=== PATIENT | female | born 1930 | race Caucasian/White ===

== ENCOUNTER 2017-07-21 11:15 | Observation (INO) ==
[2017-07-21] MEDS ORDERED: Isovue-370 500 ML INFUS..BTL IV ONE (11:32)
--- NOTE | 2017-07-21 11:36 | Emergency Department Note ---
Disposition Clinical Impression: Congestive heart failure Qualifiers: Heart failure type: unspecified Heart failure chronicity: acute Qualified Code( s): I50.9 - Heart failure, unspecified Disposition: Admitted As Inpatient Condition: Fair Referrals: Jose Roberto Jimenez DO [Primary Care Provider] - Time of Disposition: 13:40 SOB HPI - General Chief Complaint: ED Shortness of Breath/Dyspnea Stated Complaint: "possible clot in lung" Time Seen by Provider: 07/21/17 11:23 Source: patient, family Mode of arrival: ambulatory Limitations: no limitations Nursing Notes Reviewed: Yes Vital Signs Reviewed: Yes - History of Present Illness 86-year-old whose had exertional dyspnea for the last several weeks. Saw her family doctor who did some blood work yesterday and was told that she may have a blood clot in her lung. He was also in the process of arranging to have a stress test done. She comes in for evaluation for possible PE. She has never had a blood clot in the past. No recent surgery. She does not have cancer that she knows of. Pt Subjective Complaint: shortness of breath Onset (ago): week(s) Context: occurred during exertion Severity: moderate Consistency/Duration: intermittent Improves with: nothing Worsens with: exertion Associated symptoms: Denies: fever Treatment prior to arrival: none Cough present: Yes Cough Description: Involuntary Cough Frequency: Intermittent - Related Data Home Medications Medication Instructions Recorded Confirmed Aspirin [Lo-Dose Aspirin EC] 81 mg PO DAILY 07/21/17 07/21/17 Carvedilol 12.5 mg PO BID 07/21/17 07/21/17 Furosemide [Lasix] 20 mg PO DAILY 07/21/17 07/21/17 Simvastatin [Zocor] 20 mg PO HS 07/21/17 07/21/17 Allergies Allergy/AdvReac Type Severity Reaction Status Date / Time No Known Allergies Allergy Verified 08/20/15 10:27 All systems ED: reviewed and negative except as stated. Constitutional: Denies: fever, chills, weakness, weight change Eyes: Denies: eye pain, eye discharge, vision change ENT ED: Denies: ear pain, throat pain, dental pain, hearing loss, epistaxis, congestion, dysphagia Cardiovascular: Denies: chest pain, palpitations, dyspnea on exertion, edema, syncope Respiratory: Reports: dyspnea. Denies: cough, wheezes, hemoptysis, stridor Gastrointestinal: Denies: abdominal pain, nausea, vomiting, diarrhea, constipation, hematemesis, melena, hematochezia Genitourinary: Denies: dysuria, frequency, hematuria, discharge Musculoskeletal: Denies: back pain, neck pain, arthralgia, myalgia Integumentary: Denies: rash, abrasion, lesions Neurological: Denies: headache, weakness, numbness, paresthesias, confusion, abnormal gait, vertigo Psychiatric: Denies: anxiety, depression, suicidal thoughts, homicidal thoughts , auditory hallucinations, visual hallucinations Endocrine: Denies: fatigue Hematological/Lymphatic: Denies: easy bleeding, easy bruising Allergic/Immunologic: Denies: facial swelling, urticaria Past Medical History - Past Medical History Medical history: Reports: hyperlipidemia, hypertension Psychiatric history: Reports: no psych history - Social History Smoking Status: Never smoker Smokeless Tobacco Status: No Alcohol use: Reports: none Drug use: Reports: none Physical Exam - General Limitations: no limitations General appearance: alert, in no apparent distress - Head Head exam: atraumatic, normocephalic, normal inspection - Eye Eye exam: Present: normal appearance, PERRL, EOMI - ENT ENT exam: normal exam, normal oropharynx, mucous membranes moist - Neck Neck exam: Present: normal inspection, full ROM, trachea midline - Chest Chest inspection: Present: normal inspection, symmetric chest wall rise - Respiratory Respiratory exam: Present: normal lung sounds bilaterally - Cardiovascular Cardiovascular exam: Present: regular rate, normal rhythm, normal heart sounds - Abdominal Exam Abdominal exam: Present: soft, Non-Tender. Absent: tenderness, distention, guarding, rebound, rigidity - Extremities Exam Extremities exam: Present: normal inspection, full ROM. Absent: tenderness, pedal edema - Expanded Lower Extremity Exam Neurovascular/Tendon exam: Absent: motor deficit, sensory deficit, tendon deficit Gait: observed and normal - Back Exam Back exam: Present: normal inspection, full ROM. Absent: tenderness - Neurological Exam Neurological exam: Present: alert, oriented X3. Absent: motor sensory deficit - Psychiatric Psychiatric exam: Present: normal affect, normal mood - Skin Skin exam: Present: warm, dry, intact, normal color Course - Reevaluation(s) Reevaluation #1: 86-year-old comes in with exertional dyspnea. Family doctor thought that she had a blood clot. We did get additional records from the PCP and it was based on exertional dyspnea. Chest x-ray shows CHF consistent BNP. D-dimer elevated. Patient's creatinine is elevated the CT with contrast is precluded. Based on the CHF VQ scan would likely be indeterminate. Patient will be admitted for evaluation of CHF. Time: 13:38 - Consultations Consultation #1: Discussed with Dr. Holden, admit. Time: 14:28 Vital Signs Temperature 98.1 F 07/21/17 11:16 Pulse Rate 66 07/21/17 11:16 Respiratory Rate 20 07/21/17 11:16 Blood Pressure 100/63 07/21/17 11:16 O2 Sat by Pulse Oximetry 93 07/21/17 11:16 Temperature 98.1 F 07/21/17 11:16 Pulse Rate 80 07/21/17 13:10 Respiratory Rate 16 07/21/17 13:10 Blood Pressure 114/94 07/21/17 13:10 O2 Sat by Pulse Oximetry 97 07/21/17 13:10 Oxygen Delivery Oxygen Delivery Room Air Shortness of Breath/Dyspnea - Lab Data Result diagrams: 07/21/17 11:45 07/21/17 11:45 Lab Results 07/21/17 07/21/17 07/21/17 Range/Units 11:45 11:45 11:45 WBC 6.7 (4.3-11.1) K/mcL RBC 3.71 L (3.82-4.97) M/mcL Hgb 12.2 (11.5-15.4) g/dL Hct 37.5 (35.3-44.9) % MCV 101.1 H (83.0-100.0) fL MCH 32.9 (28.0-33.3) pg MCHC 32.5 (31.6-35.5) g/dL RDW 14.6 H (11.5-14.5) % Plt Count 147 (140-400) K/mcL MPV 12.1 (9.4-12.4) fL Immature Gran % 0.4 (0-4) % Seg Neutrophils % 81.2 % Lymphocytes % 11.4 % Monocytes % 6.0 % Eosinophils % 0.9 % Basophils % 0.1 % Neutrophils # 5.4 (1.6-8.9) K/mcL Lymphocytes # 0.8 (0.6-4.6) K/mcL Monocytes # 0.4 (0.0-1.3) K/mcL Eosinophils # 0.1 (0.0-0.6) K/mcL Basophils # 0.0 (0.0-0.2) K/mcL D-Dimer 1718 H (0-500) ng/mLFEU Sodium 139 (136-145) mEq/L Potassium 4.1 (3.5-5.1) mEq/L Chloride 108 H (98-107) mEq/L Carbon Dioxide 21 L (23-29) mEq/L BUN 45 H (8-23) mg/dL Creatinine 1.38 H (0.60-1.20) mg/dL Est GFR ( Amer) 44 L (> 60) Est GFR (Non-Af Amer) 36 L (> 60) BUN/Creatinine Ratio 33 H (6-26) Glucose 151 H (70-105) mg/dL Calculated Osmolality 302 H (280-300) Lactic Acid (0.5-2.2) mmol/L Calcium 9.1 (8.6-10.3) mg/dL Troponin I 0.03 (< 0.04) ng/mL B-Natriuretic Peptide (Less than 100) pg/mL 07/21/17 07/21/17 Range/Units 11:45 11:45 WBC (4.3-11.1) K/mcL RBC (3.82-4.97) M/mcL Hgb (11.5-15.4) g/dL Hct (35.3-44.9) % MCV (83.0-100.0) fL MCH (28.0-33.3) pg MCHC (31.6-35.5) g/dL RDW (11.5-14.5) % Plt Count (140-400) K/mcL MPV (9.4-12.4) fL Immature Gran % (0-4) % Seg Neutrophils % % Lymphocytes % % Monocytes % % Eosinophils % % Basophils % % Neutrophils # (1.6-8.9) K/mcL Lymphocytes # (0.6-4.6) K/mcL Monocytes # (0.0-1.3) K/mcL Eosinophils # (0.0-0.6) K/mcL Basophils # (0.0-0.2) K/mcL D-Dimer (0-500) ng/mLFEU Sodium (136-145) mEq/L Potassium (3.5-5.1) mEq/L Chloride (98-107) mEq/L Carbon Dioxide (23-29) mEq/L BUN (8-23) mg/dL Creatinine (0.60-1.20) mg/dL Est GFR ( Amer) (> 60) Est GFR (Non-Af Amer) (> 60) BUN/Creatinine Ratio (6-26) Glucose (70-105) mg/dL Calculated Osmolality (280-300) Lactic Acid 1.1 (0.5-2.2) mmol/L Calcium (8.6-10.3) mg/dL Troponin I (< 0.04) ng/mL B-Natriuretic Peptide 1825 H (Less than 100) pg/mL - EKG Data EKG attestation: Yes I reviewed and interpreted this EKG. EKG shows normal: Reports: sinus rhythm Rate: Reports: normal Rhythm: Reports: NSR [place]/QRS: Reports: left axis deviation Heart block present: Reports: 1st Degree Interpretation: Reports: no acute changes
[2017-07-21 12:07] LABS: Basophils % 0.1 %; Eosinophils # 0.1 K/mcL (0.0-0.6); Eosinophils % 0.9 %; Hematocrit 37.5 % (35.3-44.9); Hemoglobin 12.2 g/dL (11.5-15.4); Immature Granulocytes % 0.4 % (0-4); Lymphocytes # 0.8 K/mcL (0.6-4.6); Lymphocytes % 11.4 %; Mean Corpuscular HGB Conc 32.5 g/dL (31.6-35.5); Mean Corpuscular Hemoglobin 32.9 pg (28.0-33.3); Mean Corpuscular Volume 101.1 fL (83.0-100.0); Mean Platelet Volume 12.1 fL (9.4-12.4); Monocytes # 0.4 K/mcL (0.0-1.3); Neutrophils # 5.4 K/mcL (1.6-8.9); Platelet Count 147 K/mcL (140-400); Red Blood Count 3.71 M/mcL (3.82-4.97); Red Cell Distribution Width 14.6 % (11.5-14.5); Segmented Neutrophils % 81.2 %
[2017-07-21 12:31] LABS: Troponin I 0.03 ng/mL (< 0.04)
[2017-07-21] MEDS ORDERED: Furosemide 40 MG/4 ML VIAL IVP ONE (12:38)
[2017-07-21 13:21] LABS: Calcium 9.1 mg/dL (8.6-10.3); Potassium 4.1 mEq/L (3.5-5.1)
--- NOTE | 2017-07-21 17:43 | Internal Med History&Physical ---
Date of Encounter: 07/21/17 Time of Encounter: 17:35 Internal Medicine - H&P: HPI Admitted From: Home Plans for Post Hospital Care: Home History of present illness: Ms. Thorpe is a 86 year old female with hx of CHF. Pt states she has some trouble finding words sometimes but denies prior history of CVA that she is aware of. She states "I have trouble remembering nouns." She denies CP but shortness of breath. Report LE edema. States this has been going on for about 1 -2 months. States he PCP recommended she come in for further evaluation. Denies being on home oxygen. Prior smoker but denies PmHx of COPD. During my exam, when pt sat up in bed she developed some conversational dyspnea. Past Med Surg Social Fam HX - Past Medical History Medical history: hyperlipidemia, hypertension, valvular heart disease Psychiatric history: no psych history - Past Surgical History Surgical History: hysterectomy - Social History Smoking Status: Former smoker Packs per day: smoked 3/4 PPD x 20 yrs. quit 7-8 years ago. Smokeless Tobacco Status: No Alcohol use: none Drug use: none - Family History Mother Hx Family Cardiac Disorders: Yes (heart disease) Father Hx Family Cardiac Disorders: Yes (heart disease) Internal Medicine - H&P: Meds Aspirin [Lo-Dose Aspirin EC] 81 mg PO DAILY 07/21/17 [History] Carvedilol 12.5 mg PO BID 07/21/17 [History] Furosemide [Lasix] 20 mg PO DAILY 07/21/17 [History] Simvastatin [Zocor] 20 mg PO HS 07/21/17 [History] 3 Allergy/AdvReac Type Severity Reaction Status Date / Time No Known Allergies Allergy Verified 08/20/15 10:27 All Systems PM: A 10-system review of systems was performed and is negative for pertinent findings except as documented above in the HPI. - Constitutional Vitals: Temp Pulse Resp BP Pulse Ox 98.1 F 69 16 113/57 96 07/21/17 11:16 07/21/17 16:58 07/21/17 16:58 07/21/17 16:58 07/21/17 16:58 General appearance: Present: A&O X 3 - Head Head exam: Present: atraumatic, normocephalic - Eye Eye exam: Present: PERRL, conjuntiva pink, sclera anicteric Pupils: Present: PERRL - Neck Neck exam general surgery: Present: supple, trachea midline. Absent: lymphadenopathy - Respiratory Respiratory exam: Absent: chest wall tenderness, respiratory distress, rhonchi, wheezes Additional comments: Crackles R lung base. Left lung CTA - Cardiovascular Cardiovascular exam: Present: RRR, +S1, +S2. Absent: diastolic murmur, gallop, rubs, systolic murmur - GI/Abdominal GI/Abdominal exam: Present: normal bowel sounds, soft, no peritoneal signs. Absent: distended, tenderness - Extremities Exam Extremities exam: Present: pedal edema. Absent: joint swelling, tenderness - Neurological Exam Neurological exam: Present: CN II-XII intact, oriented X3, no focal deficits. Absent: pronater drift, facial droop, speech deficit - Skin Skin exam: Present: dry, intact Internal Med - H&P Results - Labs CBC & Chem 7: 07/21/17 11:45 07/21/17 11:45 - EKG Data EKG shows normal: sinus rhythm - EKG Data EKG comments: 07/21/17 18:08 first degree AVB - Impressions Chest x ray IMPRESSION: Constellation of findings suggests mild congestive heart failure, improved from 06/29/2017. - Diagnostic Studies Other Images Additional comments: Echo 07/05/17 Impressions: LVEF 30-35%. Mildly dilated left ventricle. Indeterminate diastolic function. Global left ventricular systolic dysfunction. Normal right ventricular structure and function. Moderately calcified aortic valve leaflets. Low-flow, low-gradient aortic stenosis. Peak velocity 2.13 m/s. Mean gradient 10 mmHg. KUSUM 0.8 cm2. DI 0.25 m/s. Severe pulmonary hypertension. Estimated RVSP is 57 mmHg. Trivial inferolateral pericardial effusion. Compared to prior report from 02/2016, LVEF has decreased. - Assessment and plan (1) Congestive heart failure Current Visit: Yes Status: Acute Assessment and plan: Echo done 07/05/17 showed EF 30-35%. Will Place on Lasix 40 mg IV BID for one dose and reassess in am. Pt denies CP at this time. Will cycle troponin. Qualifiers: Heart failure type: unspecified Heart failure chronicity: acute Qualified Code(s): I50.9 - Heart failure, unspecified (2) HTN (hypertension) Current Visit: Yes Status: Acute Assessment and plan: Will resume home medication Qualifiers: Hypertension type: essential hypertension Qualified Code(s): I10 - Essential (primary) hypertension (3) HLD (hyperlipidemia) Current Visit: Yes Status: Acute Assessment and plan: Will resume home medication Qualifiers: Hyperlipidemia type: unspecified Qualified Code(s): E78.5 - Hyperlipidemia , unspecified - Time Spent With Patient Total time spent is greater than 50% in coordination of care (as documented) at patient's floor/unit and/or counseling patient:
--- NOTE | 2017-07-21 18:56 | Electrocardiograph Report ---
[place] [id number] Test Date: 2017-07-21 Pat Name: Radha Thorpe Department: 102 Room: 2NE18 Gender: F Applications Support Analyst: Kunal : 1930 Requested By: Ajay Barba Order Number: [id number] Reading MD: Tanesha Heard Measurements Intervals [place] Rate: 63 P: 64 NM: 264 QRS: -68 QRSD: 145 T: 133 QT: 480 QTc: 488 Interpretive Statements SINUS RHYTHM WITH FIRST DEGREE AV BLOCK MARKED LEFT AXIS DEVIATION [QRS AXIS < -30] LEFT BUNDLE BRANCH BLOCK [120+ ms QRS DURATION, 80+ ms Q/S IN V1/V2, 85+ ms R IN I/aVL/V5/V6] Electronically Signed On 07-21-2017 18:55:26 EDT by Tanesha Heard
[2017-07-21] MEDS: Furosemide 40 MG/4 ML VIAL IVP SCH (20:11)
[2017-07-22 05:09] LABS: Basophils % 0.3 %; Eosinophils # 0.1 K/mcL (0.0-0.6); Eosinophils % 1.9 %; Hematocrit 36.4 % (35.3-44.9); Immature Granulocytes % 0.2 % (0-4); Lymphocytes # 1.1 K/mcL (0.6-4.6); Lymphocytes % 16.9 %; Mean Corpuscular Hemoglobin 33.1 pg (28.0-33.3); Mean Corpuscular Volume 100.6 fL (83.0-100.0); Mean Platelet Volume 12.3 fL (9.4-12.4); Monocytes # 0.6 K/mcL (0.0-1.3); Monocytes % 8.8 %; Neutrophils # 4.6 K/mcL (1.6-8.9); Platelet Count 154 K/mcL (140-400); Red Blood Count 3.62 M/mcL (3.82-4.97); Red Cell Distribution Width 14.6 % (11.5-14.5); Segmented Neutrophils % 71.9 %
[2017-07-22 05:29] LABS: Potassium 3.5 mEq/L (3.5-5.1)
[2017-07-22] MEDS: *HR* Heparin 5,000 UNIT/ML VIAL SQ SCH ×2 (05:46→17:20)
[2017-07-22] MEDS: Furosemide 40 MG/4 ML VIAL IVP SCH ×2 (08:47→17:20)
[2017-07-22] MEDS: Aspirin Enteric Coated 81 MG Tablet PO SCH (08:47)
--- NOTE | 2017-07-22 15:08 | Internal Med Progress Note ---
Date of Encounter: 07/22/17 Time of Encounter: 15:00 - Assessment and plan (1) Congestive heart failure Current Visit: Yes Status: Acute Assessment and plan: Echo from early June 2017 shows EF of 35% and aortic stenosis with valve area 0.8 cm. She has never had any workup for ischemic cardiomyopathy. Plan #1 continue Coreg and IV diuresis #2 consult cardiology for further workup Qualifiers: Heart failure type: unspecified Heart failure chronicity: acute Qualified Code(s): I50.9 - Heart failure, unspecified (2) HLD (hyperlipidemia) Current Visit: Yes Status: Acute Assessment and plan: Continue statin Qualifiers: Hyperlipidemia type: unspecified Qualified Code(s): E78.5 - Hyperlipidemia , unspecified (3) HTN (hypertension) Current Visit: Yes Status: Acute Assessment and plan: Adequately controlled beta karen Qualifiers: Qualified Code(s): I10 - Essential (primary) hypertension - Time Spent With Patient Total time spent is greater than 50% in coordination of care (as documented) at patient's floor/unit and/or counseling patient: 25 - 35 minutes - Subjective Interval history: Reports significant improvement in dyspnea. No other complaints. - Constitutional Vitals: Temp Pulse Resp BP Pulse Ox 97.4 F L 61 16 120/65 97 07/22/17 10:53 07/22/17 10:53 07/22/17 10:53 07/22/17 10:53 07/22/17 10:53 General appearance: Present: A&O X 3 Exam: Physical exam Gen: Comfortable, laying in bed, in no visible distress HEENT: Normocephalic, atraumatic. No conjunctival icterus. Moist oral mucosa. Neck: Supple Lungs: Clear to auscultation, no foreign sounds Heart: Distant S1 and S2 Abdomen: Normoactive bowel sounds, no guarding rigidity or tenderness Extremities: No edema clubbing or cyanosis Neuro: Alert oriented 3, no focal deficits Skin: No skin lesions Internal Medicine: Result - Labs CBC & Chem 7: 07/22/17 04:07 07/22/17 04:07 Labs: Short CBC 07/22/17 Range/Units 04:07 WBC 6.3 (4.3-11.1) K/mcL Hgb 12.0 (11.5-15.4) g/dL Hct 36.4 (35.3-44.9) % Plt Count 154 (140-400) K/mcL Neutrophils # 4.6 (1.6-8.9) K/mcL BMP 07/22/17 04:07 Sodium 141 Potassium 3.5 Chloride 106 Carbon Dioxide 26 BUN 40 H Creatinine 1.34 H Glucose 123 H Calcium 9.0 - ABG Interpretation ABG results: PT/INR, D-dimer D-Dimer 1718 ng/mLFEU (0-500) H 07/21/17 11:45 - Impressions Impressions Chest X-Ray 07/22/17 04:00 IMPRESSION: Bibasilar atelectasis or, less likely, pneumonia. D/ / Alen Marvin MD / Alen Marvin MD Interpreting Provider: Alen Marvin MD Pulmonary Perfusion Imaging 07/22/17 06:00 IMPRESSION: Low probability for pulmonary embolus. D/ / 07/22/2017 11:40:08 Sherman Santana MD / royer Interpreting Provider: Sherman Santana MD Consult Discharge Plan - Plan Referrals: Jose Roberto Jimenez DO [Primary Care Provider] -
[2017-07-23 03:34] LABS: Basophils % 0.3 %; Eosinophils # 0.1 K/mcL (0.0-0.6); Eosinophils % 1.7 %; Hemoglobin 11.8 g/dL (11.5-15.4); Immature Granulocytes % 0.2 % (0-4); Lymphocytes # 0.9 K/mcL (0.6-4.6); Lymphocytes % 15.2 %; Mean Corpuscular HGB Conc 31.9 g/dL (31.6-35.5); Mean Corpuscular Hemoglobin 31.9 pg (28.0-33.3); Mean Platelet Volume 12.2 fL (9.4-12.4); Monocytes # 0.5 K/mcL (0.0-1.3); Monocytes % 8.9 %; Neutrophils # 4.5 K/mcL (1.6-8.9); Platelet Count 150 K/mcL (140-400); Red Cell Distribution Width 14.7 % (11.5-14.5); Segmented Neutrophils % 73.7 %
[2017-07-23 03:48] LABS: Potassium 3.3 mEq/L (3.5-5.1)
[2017-07-23] MEDS: *HR* Heparin 5,000 UNIT/ML VIAL SQ SCH (06:09)
[2017-07-23] MEDS: Aspirin Enteric Coated 81 MG Tablet PO SCH (08:27)
[2017-07-23] MEDS: Furosemide 40 MG/4 ML VIAL IVP SCH (08:27)
[2017-07-23 10:52] VITALS: BP 101/54
[2017-07-23] MEDS ORDERED: Potassium Chloride 40 MEQ, Lidocaine 1% 2 ML in D5% in Water 500 ML IVPB ONE (12:19)
--- NOTE | 2017-07-23 12:30 | Discharge Summary ---
- NOTES TO OUTPATIENT PROVIDER Notes to Outpatient Provider: Follow-up with cardiology in clinic Date of Encounter: 07/23/17 Time of Encounter: 12:30 - Discharge Diagnosis (1) Congestive heart failure Priority: Primary Status: Acute Assessment and Plan: Echo from early June 2017 shows EF of 35% and aortic stenosis with valve area 0.8 cm. She has never had any workup for ischemic cardiomyopathy. Plan #1 continue Coreg and Lasix #2 follow up with cardiology in clinic for possible TAVR, LHC and heart failure optimization (2) HLD (hyperlipidemia) Priority: Secondary Status: Acute Assessment and Plan: Continue statin Qualifiers: Hyperlipidemia type: unspecified Qualified Code(s): E78.5 - Hyperlipidemia , unspecified (3) HTN (hypertension) Priority: Secondary Status: Acute Assessment and Plan: Adequately controlled beta karne Qualifiers: Qualified Code(s): I10 - Essential (primary) hypertension Hospital course: Ms. Thorpe is a 86 year old female with recently diagnosed history of systolic congestive heart failure ejection fraction 35% and aortic valve stenosis with valve area 0.8 cm resented to [facility] with trouble finding words and shortness of breath. She also had lower extremity edema. Symptoms were progressive over the last 2 months. There is also history of hypertension and hyperlipidemia. Her initial examination was unremarkable for stroke. A chest x -ray was obtained suggestive of congestive congestive heart failure. She was started on IV Lasix 40 mg twice a day with excellent response her weight dropped from 80.7->78 kg. Her dyspnea is better. We have transitioned to oral Lasix 40 mg daily from 20 mg home dose. She has been advised to see cardiology after initial consultation in the hospital for left heart catheterization, consideration for TAVR and optimization of heart failure outpatient. Discharge discussed with: patient - Time Spent with Patient Total time spent providing and/or coordinating discharge services: Greater than 30 minutes - Discharge Medications Prescriptions: Carvedilol 12.5 mg PO BID #60 tablet Furosemide [Lasix] 40 mg PO DAILY 90 Days #180 tablet Home Medications: Aspirin [Lo-Dose Aspirin EC] 81 mg PO DAILY 07/21/17 [History] Simvastatin [Zocor] 20 mg PO HS 07/21/17 [History] Carvedilol 12.5 mg PO BID #60 tablet 07/23/17 [Rx] Furosemide [Lasix] 40 mg PO DAILY 90 Days #180 tablet 07/23/17 [Rx] Allergies/Adverse Reactions: 3 Allergy/AdvReac Type Severity Reaction Status Date / Time No Known Allergies Allergy Verified 08/20/15 10:27 Date of admission: 07/21/17 16:56 Primary care physician: Jose Roberto Jimenez DO Consults: 07/21/17 18:32 Consult to Nurse Navigator [CONS] Routine Comment: 07/22/17 15:14 Consult to Cardiology [CONS] Routine Comment: Consulting Provider: Cardiology Marleni Reason for Consult: Heart failure Call Completed: Yes Discharging clinician: Della Montelongo Anticipated date of discharge: 07/23/17 - Constitutional Vitals: Temp Pulse Resp BP Pulse Ox 97.7 F 62 15 101/54 98 07/23/17 10:48 07/23/17 10:48 07/23/17 10:48 07/23/17 10:48 07/23/17 10:48 General appearance: Present: A&O X 3 Exam: Physical exam Gen: Comfortable, laying in bed, in no visible distress HEENT: Normocephalic, atraumatic. No conjunctival icterus. Moist oral mucosa. Neck: Supple Lungs: Clear to auscultation, bibasilar crackles Heart: Normal S1-S2, no murmurs rubs or gallops Abdomen: Normoactive bowel sounds, no guarding rigidity or tenderness Extremities: No edema clubbing or cyanosis Neuro: Alert oriented 3, no focal deficits Skin: No skin lesions - Patient Status Disposition: Home, Self-Care Condition: Good Overall status at discharge: patient is back to baseline - Ambulatory Orders Ambulatory Orders: Basic Metabolic Panel [CHEM] Time Frame: 1 Week, Facility: [facility], Location: Lab - Discharge Instructions Follow Up With: Jose Roberto Jimenez DO [Primary Care Provider] - (office will call with appt on monday or monday, if hear nothing call office at [phone]) Jey Ambriz, RESOURCE ROOM TEACHER [Advanced Practice Nurse] - (Office will call you with cardio appt in 1 to 2 weeks, if hear nothing by monday call the office at [phone].) Forms: ED Satisfaction Letter - Diet and Activity Activity: increase activity as tolerated Diet: advance to your usual diet, other (Limit free water intake) - VTE Documentation of Mechanical Device: Intermittent pneumatic compression device
--- NOTE | 2017-07-23 15:06 | Cardiology Consult Note ---
Date of Encounter: 07/23/17 Time of Encounter: 11:00 Assessment and Plan (1) Acute on chronic systolic heart failure, NYHA class 2 Status: Acute Suspect symptoms of dyspnea related to CHF. Improved with diuresis. LE edema has resolved. Continue carvedilol, Lasix, add YELENA-I. (2) Aortic stenosis Status: Chronic Possible low-flow, low gradient severe noted on recent echocardiogram. Will need further evaluation. Discussed with patient possible evaluation for TAVR as outpatient. Qualifiers: Cardiac valve disease etiology: nonrheumatic Qualified Code(s): I35.0 - Nonrheumatic aortic (valve) stenosis (3) Cardiomyopathy Status: Acute Unknown etiology- ischemic vs nonischemic. May be related to severe . Discussed with patient that can be worked up further as outpatient. Pt to go home and consider whether wants to pursue LHC/possible TAVR. Continue carvediolol, add YELENA-I. Will f/u with patient in outpatient setting. Advised pt to bring family members to OV to assist with memory/questions. Qualifiers: Cardiomyopathy type: unspecified Qualified Code(s): I42.9 - Cardiomyopathy , unspecified (4) HTN (hypertension) Status: Chronic Qualifiers: Hypertension type: essential hypertension Qualified Code(s): I10 - Essential (primary) hypertension Discussion w patient/family: The assessment and plan as outlined above was discussed with the patient and/or family members who expressed understanding and agreement. All questions were answered. Thank you for involving us in the care of your patient. Please call with any questions. History of Present Illness Consult date: 07/23/17 Consult reason: cardiomyopathy Chief complaint: dyspnea History of present illness: Ms. Thorpe is a 86 year old female with , HTN, hyperlipidemia presents for evaluation of dyspnea. Pt poor historian- notes that she has short-term memory difficulties. States that she was told by PCP to present to hospital for evaluation. Denies CP, SOB at rest, orthopnea, PND. Does have AGUILAR for past several months. Occasional lightheadedness with position changes as well as while at rest- transient, lasts a few seconds and resolves. Denies palpitations. Has b/l LE edema. Echocardiogram on 07/05/17 demonstrates global LV dysfunction with EF 30-35%, mild LVE. Normal RV size/function. Possible low-flow, low-gradient with mean gradient 10mmHg. Mild to moderate MR. Moderately severe pulmonary HTN with RVSP 55mmHg. Echo Feb 2016 EF was 50% with mild-moderate . Past Med Surg Social Fam HX - Past Medical History Source: old records reviewed Medical history: hyperlipidemia, hypertension, valvular heart disease Psychiatric history: no psych history - Past Surgical History Surgical History: hysterectomy - Social History Smoking Status: Former smoker Packs per day: smoked 3/4 PPD x 20 yrs. quit 7-8 years ago. Smokeless Tobacco Status: No Alcohol use: none Drug use: none - Family History Mother Hx Family Cardiac Disorders: Yes (heart disease) Father Hx Family Cardiac Disorders: Yes (heart disease) Medications and Allergies Aspirin [Lo-Dose Aspirin EC] 81 mg PO DAILY 07/21/17 [History] Simvastatin [Zocor] 20 mg PO HS 07/21/17 [History] Carvedilol 12.5 mg PO BID #60 tablet 07/23/17 [Rx] Furosemide [Lasix] 40 mg PO DAILY 90 Days #180 tablet 07/23/17 [Rx] 3 Allergy/AdvReac Type Severity Reaction Status Date / Time No Known Allergies Allergy Verified 08/20/15 10:27 All Systems Review: The remainder of the systems were reviewed and are negative - Cardiovascular Cardiovascular: as per HPI Physical Examination HEENT: Atraumatic, Normocephaly, Mucus Membranes Moist Neck: No JVD, Normal carotid pulses Cardiac: Reg Rate and Rhythm, Normal S1 and S2, Other (grade 2/6 systolic murmur LSB) Lungs: Normal Breath Sounds, No Wheeze, Rales, Rhonchi Neuro: Alert and responsive, No focal deficits noted Abdomen: Soft, Non-Tender Skin: No rashes noted on visualized skin Musculoskeletal: No Chest Wall Tenderness Extremities: No Clubbing, No Cyanosis, No Edema, Normal Pulses Results 07/23/17 02:56 07/23/17 02:56 Lab Results 07/23/17 07/23/17 02:56 02:56 WBC 6.1 Hgb 11.8 Hct 37.0 Plt Count 150 Sodium 143 Potassium 3.3 L Chloride 105 Carbon Dioxide 30 H BUN 37 H Creatinine 1.30 H Glucose 131 H Calcium 9.0 Magnesium 2.0 - EKG Interpretation EKG results cardiology: personally reviewed (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
== END 2017-07-23 14:15 | disposition home or self-care (01) ==
LOC: 2NENU 11:15 → EMEROO 11:15 → 2NENU 15:53
PROVIDERS: ADMIT Internal Medicine; ATTEND Internal Medicine